=== PATIENT | female | born 1960 | race Caucasian/White ===

== ENCOUNTER 2019-12-05 13:12 | Inpatient (IN) | payer MEDICAID ==
[~2019-12-05] VITALS: Ht 165.1 cm; Wt 124.7 kg
[2019-12-05 14:05] LABS: BASOPHILS % 0.2 % (0.0-2.0); HEMATOCRIT. 39.9 % (36.0-48.0); HEMOGLOBIN. 13.2 g/dL (12.0-16.0); LYMPHOCYTES % 36.9 % (20.0-50.0); MEAN CORPUSCULAR HEMOGLOBIN 27.4 pg (28.0-32.0); MEAN CORPUSCULAR VOLUME 83.2 fL (81.0-99.0); MEAN PLATELET VOLUME 8.1 fl (7.4-10.4); MONOCYTES % 4.7 % (2.0-8.0); NEUTROPHILS % 58.2 % (40.0-76.0); PLATELET 258 x1000/uL (130-400); RED CELL DISTRIBUTION WIDTH 17.1 % (11.6-14.6)
[2019-12-05 14:07] LABS: CHLORIDE 110 mEq/L (98-107)
[2019-12-05 14:12] LABS: D-DIMER 0.5 mg/L FEU (<0.50); INR 1.1; PROTHROMBIN TIME 11.7 sec (9.6-11.0)
[2019-12-05 14:16] LABS: CREATINE KINASE 166 IU/L (26-192)
[2019-12-05] MEDS ORDERED: AZITHROMYCIN 500 MG in DEXT 5% WATER 250 ML IV STA (15:18)
[2019-12-05] MEDS ORDERED: CEFTRIAXONE 1 G PREMIX 50 ML IV ONE (15:30)
[2019-12-05] MEDS ORDERED: DEXAMETHASONE 10 MG/ML VIAL IV ONE (15:30)
[2019-12-05] MEDS ORDERED: ALBUTEROL 6.7GM HFA INHALER ORI PRN (16:00)
[2019-12-05] MEDS ORDERED: LOPHC2 MT (16:44)
[2019-12-05] MEDS ORDERED: AMLO5TAB88 MT (16:44)
[2019-12-05] MEDS ORDERED: LEVO100T9 MT (16:44)
[2019-12-05] MEDS ORDERED: LISI-186 MT (16:44)
[2019-12-05] MEDS: ENOXAPARIN 150MG/ML SYR SUBCUT SCH (17:00)
[2019-12-05 20:00] VITALS: BP 122/60
[2019-12-05 20:25] VITALS: BP 122/67
[2019-12-05] MEDS ORDERED: SIMV-43 PO (21:11)
[2019-12-05] MEDS ORDERED: CALC-3 MT (21:11)
[2019-12-06] VITALS: BP 122/67
[2019-12-06 04:00] VITALS: BP 125/70
[2019-12-06] MEDS: ENOXAPARIN 150MG/ML SYR SUBCUT SCH ×2 (06:21→17:42)
[2019-12-06 06:28] LABS: BASOPHILS % 0.4 % (0.0-2.0); HEMATOCRIT. 39.1 % (36.0-48.0); HEMOGLOBIN. 12.8 g/dL (12.0-16.0); LYMPHOCYTES % 36.2 % (20.0-50.0); MEAN CORPUSCULAR HEMOGLOBIN 27.5 pg (28.0-32.0); MEAN CORPUSCULAR VOLUME 83.9 fL (81.0-99.0); MEAN PLATELET VOLUME 8.3 fl (7.4-10.4); MONOCYTES % 3.1 % (2.0-8.0); NEUTROPHILS % 60.3 % (40.0-76.0); PLATELET 251 x1000/uL (130-400); RED BLOOD CELL COUNT 4.67 mill/uL (4.2-5.4)
[2019-12-06 06:55] LABS: CHLORIDE 109 mEq/L (98-107)
[2019-12-06 08:47] VITALS: BP 103/57
[2019-12-06] MEDS: DEXAMETHASONE 10 MG/ML VIAL IV SCH (08:47)
[2019-12-06] MEDS: AZITHROMYCIN 500 MG TABLET PO SCH (08:47)
[2019-12-06] MEDS: BENZONATATE 100MG CAPSULE PO PRN (08:47)
[2019-12-06 11:17] VITALS: BP 120/71
[2019-12-06] MEDS: CEFTRIAXONE 1 G PREMIX 50 ML IV SCH (14:36)
[2019-12-06] MEDS ORDERED: CEFTRIAXONE 1 G PREMIX 50 ML IV SCH (15:00)
[2019-12-06 16:37] VITALS: BP 112/68
[2019-12-06 20:00] VITALS: BP 96/43
[2019-12-07] VITALS (7 sets, daily range): BP systolic 100–138; BP diastolic 49–78
[2019-12-07] MEDS ORDERED: REMDESIVIR 200 MG in SODIUM CHLORIDE 0.9% 250 ML IV NR (06:00)
[2019-12-07] MEDS: ENOXAPARIN 150MG/ML SYR SUBCUT SCH ×2 (06:13→17:19)
[2019-12-07 07:58] LABS: BASOPHILS % 0.2 % (0.0-2.0); HEMATOCRIT. 40.8 % (36.0-48.0); HEMOGLOBIN. 13.4 g/dL (12.0-16.0); LYMPHOCYTES % 25.3 % (20.0-50.0); MEAN CORPUSCULAR VOLUME 82.5 fL (81.0-99.0); MEAN PLATELET VOLUME 8.5 fl (7.4-10.4); MONOCYTES % 4.6 % (2.0-8.0); NEUTROPHILS % 69.9 % (40.0-76.0); PLATELET 359 x1000/uL (130-400); RED BLOOD CELL COUNT 4.94 mill/uL (4.2-5.4); RED CELL DISTRIBUTION WIDTH 16.6 % (11.6-14.6)
[2019-12-07 08:05] LABS: INR 1.1; PROTHROMBIN TIME 11.4 sec (9.6-11.0)
[2019-12-07 08:11] LABS: CHLORIDE 111 mEq/L (98-107)
[2019-12-07] MEDS: DEXAMETHASONE 10 MG/ML VIAL IV SCH (08:48)
[2019-12-07] MEDS: AZITHROMYCIN 500 MG TABLET PO SCH (08:48)
[2019-12-07] MEDS: DOCUSATE SODIUM 250MG CAPSULE PO PRN (14:19)
[2019-12-07] MEDS: CEFTRIAXONE 1 G PREMIX 50 ML IV SCH (15:23)
[2019-12-07] MEDS: CALCIUM CARBONATE/VITAMIN D3 500MG TABLET PO SCH (17:19)
[2019-12-07] MEDS: ATORVASTATIN CALCIUM 10MG TABLET PO SCH (20:38)
[2019-12-08] VITALS (10 sets, daily range): BP systolic 102–129; BP diastolic 42–98
[2019-12-08] MEDS: BENZONATATE 100MG CAPSULE PO PRN (03:21)
[2019-12-08 04:17] LABS: CHLORIDE 112 mEq/L (98-107)
[2019-12-08] MEDS: ENOXAPARIN 150MG/ML SYR SUBCUT SCH (05:20)
[2019-12-08] MEDS: DOCUSATE SODIUM 250MG CAPSULE PO PRN (05:40)
[2019-12-08] MEDS: REMDESIVIR 100 MG in SODIUM CHLORIDE 0.9% 250 ML IV SCH (05:40)
[2019-12-08] MEDS: DEXAMETHASONE 10 MG/ML VIAL IV SCH (09:21)
[2019-12-08] MEDS: AZITHROMYCIN 500 MG TABLET PO SCH (09:21)
[2019-12-08] MEDS: CALCIUM CARBONATE/VITAMIN D3 500MG TABLET PO SCH ×2 (09:21→18:04)
[2019-12-08] MEDS: LEVOTHYROXINE SODIUM 100MCG TABLET PO SCH (09:21)
[2019-12-08 13:33] LABS: BG BASE EXCESS -1.9 mmol/L (-2.0-2.0); BG CARBOXYHEMOGLOBIN 0.1 % (0.5-1.5); BG FRACTION INSPIRED OXYGEN 99.8; BG HCO3 ACT 22.2 mmol/L (22.0-26.0); BG METHEMOGLOBIN 0.2 % (0.0-1.5); BG OXYHEMOGLOBIN 98.7 % (94.0-97.0); BG PH 7.408 (7.350-7.450); BG PO2 171.1 mmHg (75.0-100.0); BG SAMPLE SITE RIGHT RADIAL; BG TOTAL HEMOGLOBIN 13.5 g/dL (12.0-18.0); BG VENT MODE MASK - NRB
[2019-12-08] MEDS: CEFTRIAXONE 1 G PREMIX 50 ML IV SCH (14:58)
[2019-12-08] MEDS: ATORVASTATIN CALCIUM 10MG TABLET PO SCH (21:29)
[2019-12-08] MEDS: ENOXAPARIN 120MG/0.8ML SYR SUBCUT SCH (21:30)
[2019-12-09] VITALS: BP 121/62
[2019-12-09 04:00] VITALS: BP 126/64
[2019-12-09] MEDS: BENZONATATE 100MG CAPSULE PO PRN (05:56)
[2019-12-09] MEDS: REMDESIVIR 100 MG in SODIUM CHLORIDE 0.9% 250 ML IV SCH ×2 (06:00→17:56)
[2019-12-09 06:50] LABS: CHLORIDE 111 mEq/L (98-107)
[2019-12-09 08:00] VITALS: BP 126/60
[2019-12-09] MEDS: AZITHROMYCIN 500 MG TABLET PO SCH (09:04)
[2019-12-09] MEDS: LEVOTHYROXINE SODIUM 100MCG TABLET PO SCH (09:04)
[2019-12-09] MEDS: CALCIUM CARBONATE/VITAMIN D3 500MG TABLET PO SCH ×2 (09:04→17:54)
[2019-12-09] MEDS: DEXAMETHASONE 10 MG/ML VIAL IV SCH (09:04)
[2019-12-09] MEDS: ENOXAPARIN 120MG/0.8ML SYR SUBCUT SCH ×2 (09:05→21:08)
[2019-12-09 12:00] VITALS: BP 123/65
[2019-12-09] MEDS: CEFTRIAXONE 1 G PREMIX 50 ML IV SCH (13:06)
[2019-12-09] MEDS ORDERED: METOCLOPRAMIDE HCL 10MG/2ML VIAL IV PRN (19:15)
[2019-12-09 20:00] VITALS: BP 134/67
[2019-12-09] MEDS: ATORVASTATIN CALCIUM 10MG TABLET PO SCH (21:07)
[2019-12-10] VITALS: BP 128/70
[2019-12-10 04:00] VITALS: BP 135/67
[2019-12-10] MEDS: LEVOTHYROXINE SODIUM 100MCG TABLET PO SCH (06:38)
[2019-12-10 08:00] VITALS: BP 129/87
[2019-12-10] MEDS: ENOXAPARIN 120MG/0.8ML SYR SUBCUT SCH ×2 (09:45→22:56)
[2019-12-10] MEDS: CALCIUM CARBONATE/VITAMIN D3 500MG TABLET PO SCH ×2 (09:45→16:52)
[2019-12-10] MEDS: AZITHROMYCIN 500 MG TABLET PO SCH (09:45)
[2019-12-10] MEDS: DEXAMETHASONE 10 MG/ML VIAL IV SCH (09:45)
[2019-12-10 12:00] VITALS: BP 126/62
[2019-12-10 12:27] LABS: CHLORIDE 108 mEq/L (98-107)
[2019-12-10] MEDS: CEFTRIAXONE 1 G PREMIX 50 ML IV SCH (13:12)
[2019-12-10] MEDS ORDERED: REMDESIVIR 100 MG in SODIUM CHLORIDE 0.9% 250 ML IV SCH (15:45)
[2019-12-10 16:00] VITALS: BP 110/66
[2019-12-10] MEDS: REMDESIVIR 100 MG in SODIUM CHLORIDE 0.9% 250 ML IV SCH (16:52)
[2019-12-10 20:00] VITALS: BP 134/66
[2019-12-10 21:16] LABS: CHLORIDE 108 mEq/L (98-107)
[2019-12-10] MEDS: ATORVASTATIN CALCIUM 10MG TABLET PO SCH (22:56)
[2019-12-11] VITALS: BP 128/59
[2019-12-11 04:00] VITALS: BP 128/61
[2019-12-11] MEDS: LEVOTHYROXINE SODIUM 100MCG TABLET PO SCH (06:36)
[2019-12-11 07:36] LABS: CHLORIDE 109 mEq/L (98-107)
[2019-12-11 08:00] VITALS: BP 103/46
[2019-12-11 08:16] LABS: HEMATOCRIT. 40.4 % (36.0-48.0); HEMOGLOBIN. 13.2 g/dL (12.0-16.0); MEAN CORPUSCULAR HEMOGLOBIN 27.3 pg (28.0-32.0); MEAN CORPUSCULAR VOLUME 83.8 fL (81.0-99.0); MEAN PLATELET VOLUME 8.3 fl (7.4-10.4); PLATELET 372 x1000/uL (130-400); RED BLOOD CELL COUNT 4.82 mill/uL (4.2-5.4); RED CELL DISTRIBUTION WIDTH 15.7 % (11.6-14.6)
[2019-12-11] MEDS: DEXAMETHASONE 4MG TABLET PO SCH (08:46)
[2019-12-11] MEDS: ENOXAPARIN 120MG/0.8ML SYR SUBCUT SCH ×2 (08:46→21:37)
[2019-12-11] MEDS: CALCIUM CARBONATE/VITAMIN D3 500MG TABLET PO SCH ×2 (08:46→16:49)
[2019-12-11 12:00] VITALS: BP 132/68
[2019-12-11 13:07] LABS: PLATELET ESTIMATE NORMAL
[2019-12-11] MEDS: CEFTRIAXONE 1 G PREMIX 50 ML IV SCH (13:57)
[2019-12-11 16:00] VITALS: BP 118/58
[2019-12-11] MEDS: REMDESIVIR 100 MG in SODIUM CHLORIDE 0.9% 250 ML IV SCH (16:49)
[2019-12-11 20:00] VITALS: BP 138/77
[2019-12-11] MEDS: ATORVASTATIN CALCIUM 10MG TABLET PO SCH (21:37)
[2019-12-12] VITALS: BP 125/73
[2019-12-12 04:00] VITALS: BP 110/61
[2019-12-12] MEDS: LEVOTHYROXINE SODIUM 100MCG TABLET PO SCH (08:08)
[2019-12-12] MEDS: DEXAMETHASONE 4MG TABLET PO SCH (08:08)
[2019-12-12] MEDS: CALCIUM CARBONATE/VITAMIN D3 500MG TABLET PO SCH ×2 (08:08→16:36)
[2019-12-12] MEDS: ENOXAPARIN 120MG/0.8ML SYR SUBCUT SCH ×2 (08:08→20:33)
[2019-12-12 12:00] VITALS: BP 118/67
[2019-12-12 16:00] VITALS: BP 100/39
[2019-12-12 20:00] VITALS: BP 112/50
[2019-12-12] MEDS: ATORVASTATIN CALCIUM 10MG TABLET PO SCH (20:33)
[2019-12-13 00:05] VITALS: BP 114/64
[2019-12-13 04:00] VITALS: BP 98/50
[2019-12-13 08:00] VITALS: BP 96/76
[2019-12-13] MEDS: CALCIUM CARBONATE/VITAMIN D3 500MG TABLET PO SCH ×2 (08:39→16:51)
[2019-12-13] MEDS: DEXAMETHASONE 4MG TABLET PO SCH (08:39)
[2019-12-13] MEDS: ENOXAPARIN 120MG/0.8ML SYR SUBCUT SCH ×2 (08:40→20:40)
[2019-12-13 10:20] LABS: HEMATOCRIT. 40.2 % (36.0-48.0); HEMOGLOBIN. 13.2 g/dL (12.0-16.0); MEAN CORPUSCULAR HEMOGLOBIN 27.4 pg (28.0-32.0); MEAN CORPUSCULAR VOLUME 83.4 fL (81.0-99.0); MEAN PLATELET VOLUME 8.6 fl (7.4-10.4); PLATELET 382 x1000/uL (130-400); RED BLOOD CELL COUNT 4.82 mill/uL (4.2-5.4); RED CELL DISTRIBUTION WIDTH 15.9 % (11.6-14.6)
[2019-12-13 10:24] LABS: CHLORIDE 108 mEq/L (98-107)
[2019-12-13 12:00] VITALS: BP 136/75
[2019-12-13] MEDS: LEVOTHYROXINE SODIUM 100MCG TABLET PO SCH (13:33)
[2019-12-13 16:00] VITALS: BP 108/62
[2019-12-13 17:21] LABS: PLATELET ESTIMATE NORMAL
[2019-12-13 20:00] VITALS: BP 127/67
[2019-12-13] MEDS: ATORVASTATIN CALCIUM 10MG TABLET PO SCH (20:40)
[2019-12-14 00:05] VITALS: BP 123/64
[2019-12-14 04:00] VITALS: BP 124/63
[2019-12-14 07:28] LABS: HEMATOCRIT. 40.1 % (36.0-48.0); HEMOGLOBIN. 13.2 g/dL (12.0-16.0); MEAN CORPUSCULAR HEMOGLOBIN 27.5 pg (28.0-32.0); MEAN CORPUSCULAR VOLUME 83.4 fL (81.0-99.0); MEAN PLATELET VOLUME 8.7 fl (7.4-10.4); PLATELET 379 x1000/uL (130-400); RED CELL DISTRIBUTION WIDTH 16.3 % (11.6-14.6)
[2019-12-14 08:00] VITALS: BP 112/47
[2019-12-14 08:09] LABS: CHLORIDE 109 mEq/L (98-107)
[2019-12-14] MEDS: DEXAMETHASONE 4MG TABLET PO SCH (09:12)
[2019-12-14] MEDS: ENOXAPARIN 120MG/0.8ML SYR SUBCUT SCH ×2 (09:12→21:18)
[2019-12-14] MEDS: CALCIUM CARBONATE/VITAMIN D3 500MG TABLET PO SCH ×2 (09:12→16:23)
[2019-12-14] MEDS: LEVOTHYROXINE SODIUM 100MCG TABLET PO SCH (09:12)
[2019-12-14 11:03] LABS: BG BASE EXCESS -0.9 mmol/L (-2.0-2.0); BG CARBOXYHEMOGLOBIN 0.3 % (0.5-1.5); BG DEOXYHEMOGLOBIN 2.7 % (0.0-5.0); BG FRACTION INSPIRED OXYGEN 44; BG HCO3 ACT 23.4 mmol/L (22.0-26.0); BG METHEMOGLOBIN 0.6 % (0.0-1.5); BG OXYGEN SATURATION 97.3 % (92.0-98.5); BG OXYHEMOGLOBIN 96.4 % (94.0-97.0); BG PCO2 37.6 mmHg (35.0-45.0); BG PH 7.412 (7.350-7.450); BG PO2 99.7 mmHg (75.0-100.0); BG SAMPLE SITE RIGHT RADIAL; BG TOTAL HEMOGLOBIN 13.4 g/dL (12.0-18.0); BG VENT MODE NASAL CANNULA
[2019-12-14 12:00] VITALS: BP 102/37
[2019-12-14 14:00] LABS: PLATELET ESTIMATE NORMAL
[2019-12-14 16:00] VITALS: BP 93/39
[2019-12-14 20:00] VITALS: BP 108/61
[2019-12-14] MEDS: ATORVASTATIN CALCIUM 10MG TABLET PO SCH (21:18)
[2019-12-15] VITALS (7 sets, daily range): BP systolic 97–136; BP diastolic 42–89
[2019-12-15 07:21] LABS: CHLORIDE 107 mEq/L (98-107)
[2019-12-15 07:26] LABS: HEMATOCRIT. 38.4 % (36.0-48.0); HEMOGLOBIN. 12.6 g/dL (12.0-16.0); MEAN CORPUSCULAR HEMOGLOBIN 27.3 pg (28.0-32.0); MEAN PLATELET VOLUME 8.7 fl (7.4-10.4); PLATELET 338 x1000/uL (130-400); RED BLOOD CELL COUNT 4.63 mill/uL (4.2-5.4); RED CELL DISTRIBUTION WIDTH 15.9 % (11.6-14.6)
[2019-12-15] MEDS: LEVOTHYROXINE SODIUM 100MCG TABLET PO SCH ×2 (07:40→08:41)
[2019-12-15] MEDS: CALCIUM CARBONATE/VITAMIN D3 500MG TABLET PO SCH ×2 (08:41→16:03)
[2019-12-15] MEDS: DEXAMETHASONE 4MG TABLET PO SCH (08:41)
[2019-12-15] MEDS: ENOXAPARIN 120MG/0.8ML SYR SUBCUT SCH ×2 (08:42→20:34)
[2019-12-15 16:35] LABS: PLATELET ESTIMATE INCREASED
[2019-12-15] MEDS: ATORVASTATIN CALCIUM 10MG TABLET PO SCH (20:34)
[2019-12-16] VITALS (7 sets, daily range): BP systolic 103–121; BP diastolic 41–60
[2019-12-16] MEDS: LEVOTHYROXINE SODIUM 100MCG TABLET PO SCH (06:31)
[2019-12-16] MEDS: CALCIUM CARBONATE/VITAMIN D3 500MG TABLET PO SCH ×2 (08:07→18:47)
[2019-12-16] MEDS: ENOXAPARIN 120MG/0.8ML SYR SUBCUT SCH ×2 (08:07→21:00)
[2019-12-16] MEDS: DEXAMETHASONE 4MG TABLET PO SCH (08:07)
[2019-12-16 09:58] LABS: BG BASE EXCESS 1.1 mmol/L (-2.0-2.0); BG CARBOXYHEMOGLOBIN 0.3 % (0.5-1.5); BG DEOXYHEMOGLOBIN 11.6 % (0.0-5.0); BG FRACTION INSPIRED OXYGEN 21; BG METHEMOGLOBIN 0.3 % (0.0-1.5); BG OXYGEN SATURATION 88.3 % (92.0-98.5); BG OXYHEMOGLOBIN 87.8 % (94.0-97.0); BG PCO2 42.1 mmHg (35.0-45.0); BG PH 7.408 (7.350-7.450); BG PO2 51.5 mmHg (75.0-100.0); BG SAMPLE SITE RIGHT BRACHIAL; BG TOTAL HEMOGLOBIN 12.6 g/dL (12.0-18.0); BG VENT MODE ROOM AIR
[2019-12-16 10:45] LABS: BASOPHILS % 1.2 % (0.0-2.0); EOSINOPHILS % 0.1 % (0.0-5.0); HEMATOCRIT. 37.8 % (36.0-48.0); HEMOGLOBIN. 12.4 g/dL (12.0-16.0); LYMPHOCYTES % 36.3 % (20.0-50.0); MEAN CORPUSCULAR HEMOGLOBIN 27.3 pg (28.0-32.0); MEAN CORPUSCULAR VOLUME 83.4 fL (81.0-99.0); MEAN PLATELET VOLUME 9.2 fl (7.4-10.4); MONOCYTES % 4.6 % (2.0-8.0); NEUTROPHILS % 57.8 % (40.0-76.0); PLATELET 342 x1000/uL (130-400); RED BLOOD CELL COUNT 4.53 mill/uL (4.2-5.4); RED CELL DISTRIBUTION WIDTH 16.2 % (11.6-14.6)
[2019-12-16 11:47] LABS: CHLORIDE 107 mEq/L (98-107)
[2019-12-16] MEDS ORDERED: DEX4 PO (13:59)
[2019-12-16] MEDS: ALBUTEROL 6.7GM HFA INHALER ORI SCH (14:00)
[2019-12-16] MEDS: ATORVASTATIN CALCIUM 10MG TABLET PO SCH (21:00)
[2019-12-17] VITALS: BP 107/63
[2019-12-17 04:00] VITALS: BP 111/56
[2019-12-17] MEDS: ALBUTEROL 6.7GM HFA INHALER ORI SCH ×2 (04:34→08:00)
[2019-12-17 08:00] VITALS: BP 92/41
[2019-12-17] MEDS: ENOXAPARIN 120MG/0.8ML SYR SUBCUT SCH (08:00)
[2019-12-17] MEDS: DEXAMETHASONE 4MG TABLET PO SCH (08:00)
[2019-12-17] MEDS: CALCIUM CARBONATE/VITAMIN D3 500MG TABLET PO SCH ×2 (08:00→17:17)
[2019-12-17] MEDS: LEVOTHYROXINE SODIUM 100MCG TABLET PO SCH (08:00)
[2019-12-17 12:00] VITALS: BP 90/45
[2019-12-17 15:46] VITALS: BP 90/45
[2019-12-17 16:00] VITALS: BP 99/38
== END 2019-12-17 18:05 | disposition home or self-care (01) | DRG 720 ==
LOC: ER 13:18 → EDBEDREQ 15:47 → ENRESERV 19:21 → 7WST 21:40
PROVIDERS: ADMIT Internal Medicine; ATTEND Internal Medicine
DX: A41.89 Other specified sepsis (principal); U07.1 COVID-19; J96.01 Acute respiratory failure with hypoxia; E43 Unspecified severe protein-calorie malnutrition; J12.89 Other viral pneumonia; E03.9 Hypothyroidism, unspecified; E87.8 Other disorders of electrolyte and fluid balance, not elsewhere classified; E66.01 Morbid (severe) obesity due to excess calories; I10 Essential (primary) hypertension; Z68.42 Body mass index [BMI] 45.0-49.9, adult; Z99.81 Dependence on supplemental oxygen
CPT/HCPCS: 36415; 36600; 71045; 80048; 80053; 81003; 82375; 82550; 82728; 82805; 83605; 83615; 83880; 84145; 84439; 84443; 84484; 85025; 85379; 85384; 86140; 86850; 86900; 86927; 87804; 93005; 96365; 99291; J0456; J0696; J1100; J1650; J7050; J7060; J8540; P9017; Q9957; U0003-CS